=== PATIENT | female | born 1985 ===

== ENCOUNTER 2025-06-13 10:45 | Inpatient (IN) | payer OTHER ==
[~2025-06-13] VITALS: Ht 157.5 cm; Wt 70.3 kg
[2025-06-13] MEDS ORDERED: LOSARTAN POTASS50 MG PO (12:48)
[2025-06-13] MEDS ORDERED: HYDRODIURIL12.5 MG PO (12:49)
[2025-06-13] MEDS ORDERED: NORETHINDRONE AC5 MG PO (12:49)
[2025-06-13 12:50] VITALS: BP 160/96
[2025-06-21] MEDS ORDERED: VASOPRESSIN 20 UNITS/ML VIAL IJ ONE (15:30)
[2025-06-21] MEDS ORDERED: CEFAZOLIN SODIUM 1,000 MG VIAL IV ONE (15:30)
[2025-06-21] MEDS ORDERED: TRANEXAMIC ACID 100MG/1ML (1000MG) AMPUL IV ONE (15:30)
[2025-06-21] MEDS ORDERED: POVIDONE-IODINE 118 ML BOTT TOP ONE (15:30)
[2025-06-21] MEDS ORDERED: SUGAMMADEX SODIUM 200 MG/2 ML VIAL IV ONE (16:00)
[2025-06-21] MEDS ORDERED: METHYLENE BLUE 10MG/ML 10 ML AMPUL IV ONE (16:00)
[2025-06-21] MEDS ORDERED: METRONIDAZOLE/SODIUM CHLORIDE 500 MG/100 ML PIGGYBACK IV ONE (18:00)
[2025-06-21] MEDS ORDERED: KETOROLAC TROMETHAMINE 30 MG VIAL IV SCH (21:11)
[2025-06-21] MEDS ORDERED: ACETAMINOPHEN 500 MG GEL..CAP PO SCH (21:11)
[2025-06-21] MEDS ORDERED: GABAPENTIN 300 MG CAPSULE PO SCH (21:12)
[2025-06-21] MEDS ORDERED: RINGERS SOLUTION,LACTATED 1,000 ML IV SCH (21:15)
[2025-06-21] MEDS ORDERED: ONDANSETRON HCL 2 MG/ML VIAL IV PRN (21:15)
[2025-06-21 22:07] VITALS: BP 140/80
[2025-06-21] MEDS ORDERED: ENALAPRILAT DIHYDRATE 1.25 MG/ML VIAL IV PRN (22:30)
[2025-06-21] MEDS ORDERED: FAMOTIDINE/PF 20 MG in 0.9 % SODIUM CHLORIDE 8 ML IV PUSH SCH (22:30)
[2025-06-22 00:31] VITALS: BP 138/80
[2025-06-22 05:43] VITALS: BP 125/74
[2025-06-22 06:36] LABS: BASO % 0.3 % (0.1-1.2); EOS # 0.01 (0.04-0.54); EOS % 0.1 % (0.7-7.0); LYMPH # 1.49 (1.18-3.74); LYMPH % 18.8 % (19.3-53.1); MEAN PLATELET VOLUME 10.10 fl (9.4-12.4); MONO # 0.52 (0.24-0.82); MONO % 6.6 % (4.7-12.5); NEUT # 5.87 (1.56-6.13); NEUT % 73.9 % (34.0-71.1); RED CELL DISTRIBUTION WIDTH 21.2 % (11.6-14.4)
[2025-06-22 08:00] VITALS: BP 140/85
[2025-06-22] MEDS ORDERED: LOSARTAN/HYDROCHLOROTHIAZIDE 1 UDTAB TABLET PO SCH (09:00)
== END 2025-06-22 11:17 | disposition home or self-care (01) | DRG 743 ==
LOC: SURH 06-21 07:00 → O/R 06-21 11:00 → OB/GYN 06-21 19:08
PROVIDERS: ADMIT Student in an Organized Health Care Education/Training Program; ATTEND Student in an Organized Health Care Education/Training Program
PROC: 0UB Female Reproductive System, Excision (ICD-10-PCS; 2025-06-21)
PROC: 0UB44ZZ Excision of Uterine Supporting Structure, Percutaneous Endoscopic Approach (ICD-10-PCS; 2025-06-21)
PROC: 0UBF4ZZ Excision of Cul-de-sac, Percutaneous Endoscopic Approach (ICD-10-PCS; 2025-06-21)
PROC: 0WBH4ZZ Excision of Retroperitoneum, Percutaneous Endoscopic Approach (ICD-10-PCS; 2025-06-21)
PROC: 0TN64ZZ Release Right Ureter, Percutaneous Endoscopic Approach (ICD-10-PCS; 2025-06-21)
PROC: 8E0W4CZ Robotic Assisted Procedure of Trunk Region, Percutaneous Endoscopic Approach (ICD-10-PCS; 2025-06-21)
PROC: 3E1P88Z Irrigation of Female Reproductive using Irrigating Substance, Via Natural or Artificial Opening Endoscopic (ICD-10-PCS; 2025-06-21)
PROC: 0UB94ZZ Excision of Uterus, Percutaneous Endoscopic Approach (ICD-10-PCS; principal; 2025-06-21 07:00)
DX: D25.9 Leiomyoma of uterus, unspecified (principal); N80.319 Endometriosis of the anterior cul-de-sac, unspecified depth; N80.329 Endometriosis of the posterior cul-de-sac, unspecified depth; N80.353 Endometriosis of bilateral pelvic sidewall, unspecified depth; N80.00 Endometriosis of the uterus, unspecified; N80.02 Deep endometriosis of the uterus; N80.3C1 Endometriosis of the right uterosacral ligament, unspecified depth; N80.8 Other endometriosis; N80.03 Adenomyosis of the uterus; R10.20 Pelvic and perineal pain unspecified side
CPT/HCPCS: 58545; 58350; 58662; 50715; S2900